=== PATIENT | male | born 2000 | race Caucasian/White ===

== ENCOUNTER 2024-01-21 17:08 | Emergency (ER) | payer OTHER ==
[2024-01-21 19:42] LABS: BASOPHILS PERCENT AUTO 0.3 % (0.0-1.0); EOSINOPHILS ABSOLUTE AUTO 0.2 K/mm3 (0.0-0.4); HEMATOCRIT 46.6 % (42.0-52.0); HEMOGLOBIN 16.3 gm/dl (14.0-18.0); IMMATURE GRAN ABSOLUTE AUTO 0.03 K/mm3 (0.00-0.05); IMMATURE GRAN PERCENT AUTO 0.3 % (0.0-0.4); LYMPHOCYTES ABSOLUTE AUTO 2.9 K/mm3 (1.0-4.8); LYMPHOCYTES PERCENT AUTO 28.5 % (24.0-44.0); MEAN CORPUSCULAR HEMOGLOBIN 30.2 pg (28.0-32.0); MEAN CORPUSCULAR VOLUME 86.5 fl (83.0-99.0); MEAN PLATELET VOLUME 9.5 fl (9.4-12.4); MONOCYTES ABSOLUTE AUTO 0.6 K/mm3 (0.0-0.8); MONOCYTES PERCENT AUTO 5.7 % (0.0-8.0); NEUTROPHILS ABSOLUTE AUTO 6.5 K/mm3 (1.8-7.7); NEUTROPHILS PERCENT AUTO 63.2 % (41.0-71.0); PLATELET COUNT,PLT 216 K/mm3 (150-400); RED BLOOD CELL COUNT 5.39 M/mm3 (4.52-5.90); WHITE BLOOD CELL COUNT,WBC 10.19 K/mm3 (3.9-11.3)
[2024-01-21 20:18] LABS: A/G RATIO 1.3 (1-2); ALBUMIN 4.3 g/dl (3.4-5.0); ANION GAP 15.8 (5-15); BILIRUBIN TOTAL 0.6 mg/dL (0.2-1.0); BUN/CREATININE RATIO 16.7 (14-18); CALCIUM 9.1 mg/dL (8.5-10.1); CREATININE 0.9 mg/dL (0.7-1.3); EST CRCL DRUG DOSING (CG) 145.77 mL/min; POTASSIUM,K 3.8 mEq/L (3.5-5.1); PROTEIN TOTAL,TP 7.5 g/dl (6.4-8.2); TSH 1.884 uIU/mL (0.358-3.74)
== END 2024-01-21 21:25 | disposition home or self-care (01) ==
LOC: JD.ED 17:08
DX: R00.2 Palpitations (principal); Z91.018 Allergy to other foods
CPT/HCPCS: 36415; 71046; 71046-26; 80053; 84443; 84484; 85025; 85379; 93246